=== PATIENT | male | born 1945 | race Caucasian/White ===

== ENCOUNTER → 2018-07-13 07:54 | Outpatient (CLI) | payer OTHER, SELFPAY ==
--- NOTE | 2018-07-13 | DI.US.S_ITS ---
PROCEDURE: US ABD AORTA ANEURYSM SCREEN INDICATIONS: AAA SCREENING TECHNIQUE: Real time scanning was performed of the aorta and iliac arteries, with image documentation. COMPARISON: None. FINDINGS: Aorta: Proximal clear is not well-seen due to bowel gas. Mid-aorta measures 2.0 cm. Distal aortic diameter is 2.0 cm. Iliac arteries: Right common iliac artery measures 1.0 cm. Left common iliac artery measures 1.1 cm. IMPRESSION: No mid-to distal abdominal aortic or iliac artery aneurysm. Proximal aorta was not evaluated due to bowel gas. Dictated by: Claire Estrella M.D. on 07/13/2018 at 9:17 Approved by: Claire Estrella M.D. on 07/13/2018 at 9:18
== END ==
PROVIDERS: Visit Provider Family Medicine
DX: Z13.6 Encounter for screening for cardiovascular disorders (principal)
CPT/HCPCS: 76706

== ENCOUNTER 2019-01-18 14:49 | Day surgery (SDC) | payer OTHER, SELFPAY ==
--- NOTE | 2019-01-18 | PATH_ITS ---
[facility] Accession Number: [id number] . 01 Material submitted: . PART A: colon - CECUM BIOPSIES X2 PART B: colon - SIGMOID BIOPSY . 01 Clinical history: . A-B: IRRITATED MUCOSA . 02 Diagnosis: A. Cecum, Biopsies x2: Colonic mucosa with no significant diagnostic abnormality. Additional levels were examined. Negative for active, chronic and microscopic colitis. Negative for dysplasia and malignancy. . B. Sigmoid Colon, Biopsy: Colonic mucosa with no diagnostic abnormality. Negative for active, chronic and microscopic colitis. Negative for dysplasia and malignancy. MRV 01/21/2019 1534 Local . 02 Electronically signed: . Sandra Hilliard MD, Pathologist NPI- [id number] . 01 Gross description: . Part A: CECUM BIOPSIES X2: Received in formalin are 2 fragment(s) of hernández, soft tissue measuring 0.8 x 0.2 x 0.1 cm to 0.3 x 0.2 x 0.1 cm submitted entirely in 1 cassette(s) Part B: SIGMOID BIOPSY: Received in formalin is 1 fragment(s) of hernández, soft tissue measuring 0.3 x 0.2 x 0.1 cm submitted entirely in 1 cassette(s) /QBJ 01/19/2019 0600 Local . 02 Pathologist provided ICD-10: Z12.11 . 02 CPT . 064979, [id number] Performed at: 01 [facility] [address] [facility], [place], [place] [id number] MD Francesco Lora MD Phone: [phone] Performed at: 02 [facility] [address] , [place], [place] [id number] MD Sandra Hilliard MD Phone: [phone]
--- NOTE | 2019-01-18 06:17 | PM.HP.1 ---
History of Present Illness History of Present Illness Date Patient Seen: 01/18/19 Time Patient Seen: 15:45 Chief complaint: [id number] Narrative: 73 year old male comes in today for consideration of a screening colonoscopy. There have been no lower GI symptoms suggesting disease such as change in bowel habits, bleeding, abdominal pain or anemia. There's been no family history of colon cancer or colon polyps. Overall health issues have been stable, including no major cardiac events for at least 6 weeks. PCP: Dr. Wade Past medical history: Hypertension Obstructive sleep apnea Raynaud syndrome Rosacea PSA elevation Osteoarthritis Anisocoria Renal agenesis Past surgical history: Prostate biopsy, benign Right hernia repair, 2004 Family history: Hypertension, diabetes, [place] Social history: . Meds Home Medications and Allergies Home Medications Medication Instructions Recorded Confirmed Type albuterol sulfate [Ventolin HFA] 2 puff INHALATION Q4-6H PRN 01/18/19 01/18/19 History tamsulosin 0.4 mg PO DAILY 01/18/19 01/18/19 History Allergies Allergy/AdvReac Type Severity Reaction Status Date / Time aspirin Allergy Severe Unresponsiv Verified 01/18/19 14:46 e Review of Systems Review of Systems ROS Unobtainable: All systems reviewed & are unremarkable except as noted in HPI and below Exam Narrative Exam Narrative: GENERAL: Alert and oriented, appearing stated age and in no acute distress. HEENT: Head normocephalic/atraumatic. LUNGS: Clear to ausculation bilaterally, no wheezes, rhonchi or rales. CV: Normal S1 and S2 with regular rate and rhythm, no audible murmurs, rubs or gallops. ABDOMEN: Soft, non-tender, non-distended, no organomegaly. Positive bowel sounds. EXTREMITIES: No clubbing, cyanosis, or edema. NEURO: Cranial nerves II through XII grossly intact, no focal deficits. PSYCH: Alert and oriented x 3. SKIN: No concerning lesions. Assessment & Plan Assessment & Plan narrative: 1. Screening for colon cancer Plan for colonoscopy. The nature and character of the procedure as well as anticipated results were discussed. The possibility of not completing the procedure was also discussed. Possible complications including aspiration pneumonia, bleeding, perforation and reaction to medications either for sedation or preparation and missed lesions were discussed. Questions were answered and proceeding to the colonoscopy was elected. Informed consent signed.
--- NOTE | 2019-01-18 14:13 | PM.OP.ENDO ---
Operative Date/Time/Diagnoses Date of procedure: 01/18/19 Time of procedure: 15:57 Pre-op diagnosis: 1. Screening for colon cancer 2. History of colon polyps Post-op diagnosis: other (1. Colitis, cecum and sigmoid, 2. Diverticulosis, left-sided, mild) Procedure & Clinicians Study performed: Colonoscopy Same procedure as scheduled: Yes Surgeon: Zonia Wade Procedure Notes SCOAP/Timeout: 15:57 Procedure in detail: ENDOSCOPIST: Zonia Wade MD Sedation RN: Idalia Sharma RN Sedation start time: 3:58 p.m. Sedation end time: 4:31 p.m. PROCEDURE: Colonoscopy with biopsy INDICATIONS: 1. History of colon polyps 2. Screening for colon cancer MEDICATION: Levsin 0.125 mg sublingual, incremental doses of Versed and fentanyl until appropriate level sedation achieved. ASA CLASS: 2 CECAL WITHDRAWAL TIME: 19 minutes COMPLICATIONS: None. EXTENT OF PROCEDURE: Cecum. QUALITY OF PREP: Good with portions of liquid stool. PROCEDURE: Prior to insertion of the colonoscope, a digital rectal examination was accomplished with circumferential palpation of the distal rectal mucosa without significant findings being noted. The high-definition colonoscope was passed into the rectum in the usual fashion and advanced over to the cecum without difficulty. The ileocecal valve, appendiceal stoma, and medial wall all could be inspected and tissue was friable and bleeding, targeted biopsy taken x2. ASCENDING COLON: As the colonoscope was withdrawn, care was taken to expose and inspect the haustral folds and no abnormalities were seen. HEPATIC FLEXURE: Normal no polyps, diverticula or other abnormalities. TRANSVERSE COLON: Normal no polyps, diverticula or other abnormalities. DESCENDING COLON: Normal no polyps, minor diverticulosis, otherwise, no other abnormalities. SIGMOID COLON: Minor diverticulosis, small patch of irritated mucosa, targeted biopsy taken x1. Hemoclip placed with excellent hemostasis. RECTUM: Normal. J maneuver was produced. There was no significant perianal disease. The J maneuver was broken. The remainder of the rectum was inspected and there was no external hemorrhoid disease. The scope was withdrawn. IMPRESSION: 1. Colitis, cecum and sigmoid 2. Diverticulosis, left-sided, mild PLAN: 1. Follow-up in clinic status post pathology results. The possibility of a missed lesion including a malignancy has been discussed with the patient previously. Potential alarm symptoms have been discussed and should be reported immediately. Scope withdrawal time: 19 minutes Sedation minutes: 33 Findings: colitis and diverticulosis Specimen(s): other Complications: none Impression: As above. Post-procedure Recommendations: Will call with biopsy results Follow up: weeks (2) Disposition: PACU
[2019-01-18 15:12] VITALS: BP 144/93; PULSE 81; RESP 16; TEMP 36.8; O2SAT 95; BMI 33.7
[2019-01-18] MEDS: SODIUM CHLORIDE 0.9% 1,000 ML 200 ML IV (15:24)
[2019-01-18] MEDS: fentaNYL 250 MCG/5 ML INJ IV (16:34)
[2019-01-18 16:35] VITALS: BP 121/82; PULSE 78; RESP 17; TEMP 36.4; O2SAT 95
[2019-01-18] MEDS: MIDAZOLAM 5 MG/5 ML VIAL IV (16:35)
[2019-01-18 16:40] VITALS: BP 117/81; PULSE 77; RESP 13; O2SAT 94
[2019-01-18 16:45] VITALS: BP 124/90; PULSE 76; RESP 17; O2SAT 95
[2019-01-18 17:00] VITALS: BP 126/83; PULSE 72; RESP 16; TEMP 36.7; O2SAT 97
== END 2019-01-18 17:10 | disposition home or self-care (01) ==
PROVIDERS: PCP Student in an Organized Health Care Education/Training Program; Visit Provider Student in an Organized Health Care Education/Training Program
PROC: 0DJD8ZZ Inspection of Lower Intestinal Tract, Via Natural or Artificial Opening Endoscopic (ICD-10-PCS; CPT 45378; principal; 2019-01-18 16:00)
DX: Z12.11 Encounter for screening for malignant neoplasm of colon (principal); Z86.010 Personal history of colon polyps; K57.30 Diverticulosis of large intestine without perforation or abscess without bleeding; K52.9 Noninfective gastroenteritis and colitis, unspecified; I10 Essential (primary) hypertension; G47.33 Obstructive sleep apnea (adult) (pediatric)
CPT/HCPCS: 45380; J2250; J3010

== ENCOUNTER → 2020-01-04 08:42 | Outpatient (CLI) | payer OTHER, SELFPAY ==
--- NOTE | 2020-01-04 | DI.RAD.S_ITS ---
PROCEDURE: XR FOOT LT MIN 3V INDICATIONS: LEFT FOOT PAIN TECHNIQUE: 3 views of the foot were acquired. COMPARISON: None. FINDINGS: Bones: No fractures or dislocations. No suspicious bony lesions. Note is made of an os navicularis at the medial border of the navicular bone, which can induce pain. A small assess Ree ossicle is noted at the lateral border of the base of the cuboid bone. Soft tissues: No tibiotalar joint effusion. Achilles tendon appears normal. IMPRESSION: No trauma found, a definite source of current symptoms is not identified. The os navicularis at the medial border of the navicular bone may induce tenderness in that area. The small accessory ossicle near the lateral base of the cuboid bone would be expected to be asymptomatic. Dictated by: Román Cedeno M.D. on 01/04/2020 at 12:12 Approved by: Román Cedeno M.D. on 01/04/2020 at 12:12
== END ==
PROVIDERS: PCP Student in an Organized Health Care Education/Training Program; Referring Provider Student in an Organized Health Care Education/Training Program; Visit Provider Student in an Organized Health Care Education/Training Program
DX: M79.672 Pain in left foot (principal)
CPT/HCPCS: 73630

== ENCOUNTER → 2020-12-21 14:20 | Outpatient (CLI) | payer OTHER, SELFPAY ==
--- NOTE | 2020-12-21 | DI.RAD.S_ITS ---
PROCEDURE: XR HAND LT MIN 3V INDICATIONS: Pain in left hand TECHNIQUE: 3 views of the hand(s) acquired. COMPARISON: None. FINDINGS: Bones: No fractures or dislocations. Carpal bones are normally aligned. No suspicious bony lesions. Osteophytosis about the 1st carpometacarpal articulation. Mild 2nd and 3rd distal interphalangeal joint narrowing with osteophytosis. Soft tissues: No suspicious soft tissue calcifications. IMPRESSION: No acute osseous abnormality. Dictated by: Peter Spence M.D. on 12/21/2020 at 16:33 Approved by: Peter Spence M.D. on 12/21/2020 at 16:35
== END ==
PROVIDERS: PCP Student in an Organized Health Care Education/Training Program; Referring Provider Student in an Organized Health Care Education/Training Program; Visit Provider Student in an Organized Health Care Education/Training Program
DX: M79.642 Pain in left hand (principal)
CPT/HCPCS: 73130

== ENCOUNTER 2024-03-19 09:03 | Day surgery (SDC) | payer OTHER, SELFPAY ==
[2024-03-19 09:54] VITALS: BP 132/72; PULSE 75; RESP 16; TEMP 36.2; O2SAT 98
[2024-03-19] MEDS: SODIUM CHLORIDE 0.9% 1,000 ML 84 ML IV (10:01)
--- NOTE | 2024-03-19 10:21 | P.HP_ITS ---
History of Present Illness History of Present Illness Date Patient Seen: 03/19/24 Time Patient Seen: 10:21 Chief complaint: Colonoscopy Narrative: 78-year-old white male, personal history of polyps. Otherwise healthy. [facility] Medical History (Updated 03/19/24 @ 10:22 by Soto Mclaughlin MD) Personal history of colonic polyps Social History household members: spouse Smoking Status: Former smoker alcohol intake: current Meds Home Medications and Allergies Home Medications Medication Instructions Recorded Confirmed Type tamsulosin 0.4 mg capsule 0.4 mg PO DAILY 01/18/19 03/19/24 History sodium,potassium,mag sulfates 17.5 See Rx Instructions PO .COMPLEX 02/04/24 Rx gram-3.13 gram-1.6 gram oral soln #354 mL (Suprep Bowel Prep Kit) Allergies Allergy/AdvReac Type Severity Reaction Status Date / Time aspirin Allergy Severe Unresponsiv Verified 03/19/24 09:42 e Review of Systems Review of Systems ROS: Yes All systems reviewed with the patient and are negative except as otherwise documented Exam Vital Signs (past 8 hours): - 03/19/24 09:54 Temperature 97.2 F L Pulse Rate 75 Respiratory Rate 16 Blood Pressure 132/72 Pulse Oximetry 98 Oxygen Delivery Method Room Air Oxygen Delivery Method Room Air Narrative Exam Narrative: Gen: NAD, sitting comfortably in bed, appears well HEENT: Sclera are anicteric, head is normocephalic and atraumatic, trachea is midline. CV: RRR, no JVD Resp: clear to auscultation bilaterally, equal chest wall movement bilaterally Abd: soft, nontender, normoactive bowel sounds Ext: no edema, full range of motion Neuro: Cranial nerves II-XII grossly intact, no focal deficits Skin: No erythema or ecchymosis Assessment & Plan Assessment and plan (1) Personal history of colonic polyps: Status: Acute Assessment & Plan narrative: Patient presents for colonoscopy Risks, benefits, alternatives to colonoscopy explained, including but not limited to bowel perforation or other serious complication requiring surgery at less than 1 in 5000 colonoscopies, abdominal pain, cramping or bleeding and less than 1% of colonoscopies, and the chances that we find a diagnosis that would require further intervention of about 2%. Patient agrees to proceed. Time-Based Coding :: [TOTAL MINUTES] spent with patient and on the chart (including review of chart, obtaining history, exam, reviewing outside data, placing orders, documenting exam and treatment plan, and counseling patient) on [DATE].
--- NOTE | 2024-03-19 10:40 | PM.OP.COLON ---
Operative Date/Time/Diagnoses Date of procedure: 03/19/24 Time of procedure: 10:40 Pre-op diagnosis: History of colitis Post-op diagnosis: other (Diverticulosis without diverticulitis) Procedure & Clinicians Study performed: Screening colonoscopy Same procedure as scheduled: Yes Indications: Personal history of colitis Surgeon: Soto Mclaughlin Procedure Notes SCOAP/Timeout: Performed Procedure in detail: Time-out was performed. Mac was induced. Patient was placed in left lateral decubitus position. The perineum was inspected without any gross abnormality. Lubricated pediatric colonoscope was inserted and advanced to the cecum. The terminal ileum was intubated. The colonoscope was withdrawn slowly inspecting the circumference of the colon. Very small polyps may have been missed, prep quality was adequate. Extensive sigmoid diverticulosis without evidence of diverticulitis. Retroflexed view of the rectum showed small, non prolapsed nonbleeding internal hemorrhoids. The scope was withdrawn the patient was taken to PACU in good condition. Scope withdrawal time: 6 Sedation minutes: 12 Findings: divertiulosis Specimen(s): none sent Complications: none Impression: Sigmoid diverticulosis Post-procedure Recommendations: Colonoscopy in 10 years Follow up: as needed Disposition: PACU
[2024-03-19 10:41] VITALS: BP 95/63; PULSE 67; RESP 19; TEMP 36.6; O2SAT 95
[2024-03-19 10:46] VITALS: BP 107/72; PULSE 66; RESP 16; O2SAT 95
[2024-03-19 10:51] VITALS: BP 111/72; PULSE 82; RESP 21; O2SAT 97
[2024-03-19 11:05] VITALS: BP 119/77; PULSE 68; RESP 22; O2SAT 96
== END 2024-03-19 11:45 | disposition home or self-care (01) ==
PROVIDERS: PCP Registered Nurse; Referring Provider Surgery; Visit Provider Surgery
PROC: 0DJD8ZZ Inspection of Lower Intestinal Tract, Via Natural or Artificial Opening Endoscopic (ICD-10-PCS; CPT 45378; principal; 2024-03-19 10:15)
DX: Z12.11 Encounter for screening for malignant neoplasm of colon (principal); K57.30 Diverticulosis of large intestine without perforation or abscess without bleeding; Z86.0100 Personal history of colon polyps, unspecified; K64.8 Other hemorrhoids; G47.33 Obstructive sleep apnea (adult) (pediatric); E66.9 Obesity, unspecified; Z87.891 Personal history of nicotine dependence
CPT/HCPCS: G0105; J2704